=== PATIENT | male | born 1965 | race Caucasian/White ===

== ENCOUNTER → 2016-07-22 | Outpatient (CLI) | payer BC ==
[~2016-07-22] MED LIST: AMLO-114 PO; BUPR-79 PO; BUSP15TA70 PO; CETI10TA84 PO; CHOL1000 PO; GABA-113 PO; LORA-741 PO; LOSA1TAB PO; LOVA20TA4 PO; MAGN400T6 PO; METF-841 PO; METF500T PO; MULTTAB58 PO; OMEP20TA14 PO; PRLSR20 PO; ZOLP10TA PO
[2016-07-26 18:38] LABS: ANTI-SS-A <1.0 NEG AI (<1.0 NEG); ANTI-SS-B <1.0 NEG AI (<1.0 NEG); IGA SERUM 165 mg/dL (81-463); TIS TRANS IGA 1 U/mL (<4)
== END | disposition home or self-care (01) ==
LOC: C.LAB1850 09:16
PROVIDERS: ATTEND Registered Nurse
DX: R63.1 Polydipsia (principal); K52.9 Noninfective gastroenteritis and colitis, unspecified; Z82.69 Family history of other diseases of the musculoskeletal system and connective tissue

== ENCOUNTER → 2016-09-15 | Day surgery (SDC) | payer BC ==
[2016-07-27 08:24] VITALS: Ht 180.3 cm; Wt 168.2 kg
[~2016-09-15] VITALS: Ht 180.3 cm; Wt 168.2 kg
[~2016-09-15] MED LIST changes: -GABA-113 PO; +LIDOCAINE HCL 2% 2 ML VIAL (20MG/ML) ONE; -LORA-741 PO; -METF500T PO; +MIDAZOLAM HCL 1 MG/ML 2ML VIAL ONE; -OMEP20TA14 PO; +ONDANSETRON INJ 2 MG/ML 2 ML VIAL ONE; +PROPOFOL IV EMULSION 10 MG/ML 20 ML VIAL IV ONE; +SODIUM CHLORIDE 0.9% 500ML 500 ML IV ONE
[2016-09-15 11:05] VITALS: TEMP 36.9
--- NOTE | 2016-09-15 11:36 | Endo History and Physical ---
History & Physical Date of Service: Sep 15, 2016. Chief Complaint: diarrhea and abdominal tenderness Referring Physician: Edil Wharton PA-C History of Present Illness 51 yo CM who presents for colonoscopy secondary to diarrhea and abdominal tenderness. Past Surgical History Hx Cardiac Surgery: No Hx Internal Defibrillator: No Hx Pacemaker: No Hx Abdominal Surgery: No Hx of Implantable Prosthesis: No Hx Post-Op Nausea and Vomiting: No Hx Cancer Surgery: No Hx Thoracic Surgery: No Hx Orthopedic: Yes (L/R HAND SURGERY X4) Hx Urinary Tract Surgery: No Family History None Social History Smoking Status: Former Smoker Hx Substance Use: No Hx Alcohol Use: Yes (RARELY) Allergies Coded Allergies: Meloxicam (Verified Allergy, Severe, total body edema, 09/15/16) Current Medications Reported Home Medications Medications Dose Route/Sig Max Daily Dose Days Date Category Zyrtec (Cetirizine HCl) 10 Mg Tab 10 Mg PO DAILY PRN 07/27/16 Reported Multivitamin (Multiple Vitamin) 1 Tab Tab 1 Tab PO QAM 07/27/16 Reported Buspar (Buspirone Hcl) 15 Mg Tab 5 Mg PO PRN PRN 07/27/16 Reported Cozaar (Losartan Potassium) 25 Mg Tab 25 Mg PO QAM 07/27/16 Reported Prilosec (Omeprazole) 20 Mg Capcr 20 Mg PO QAM 07/27/16 Reported Vitamin D3 (Cholecalciferol) 1,000 Unit Tab 1 Tab PO QAM 07/27/16 Reported Metformin HCl ER (Metformin HCl) 1,000 Mg Tab 1 Tab PO BID 07/27/16 Reported Mevacor (Lovastatin) 20 Mg Tab 20 Mg PO QPM 10/10/13 Reported Norvasc (Amlodipine Besylate) 10 Mg Tab 10 Mg PO QAM 10/10/13 Reported Wellbutrin Sr (Bupropion HCl) 150 Mg Ertab 150 Mg PO BID 10/10/13 Reported Mag-Ox (Magnesium Oxide) 400 Mg Tab 400 Mg PO BID 10/10/13 Reported Ambien (Zolpidem Tartrate) 10 Mg Tab 10 Mg PO HS PRN 11/25/11 Reported Vital Signs Weight (Kilograms): 168.18 Height (Feet): 5 Height (Inches): 11 Date Time Temp Pulse Resp B/P Pulse Ox O2 Delivery O2 Flow Rate FiO2 09/15/16 11:05 36.9 78 20 155/97 95 Room Air Physical Exam General Appearance: WD/WN, no apparent distress Respiratory/Chest: Auscultation: breath sounds normal Cardiovascular: Heart Auscultation: RRR Abdomen: Bowel Sounds: normal Inspection & Palpation: soft, non-distended, no tenderness, guarding & rebound Assessment and Plan Assessment: 51 yo CM who presents for colonoscopy secondary to diarrhea and abdominal tenderness. Plan: Proceed with colonoscopy.
--- NOTE | 2016-09-15 12:29 | GI REPORT ---
Procedure Date: 09/15/2016 11:41 AM Procedure: Colonoscopy Indications: Generalized abdominal pain, Chronic diarrhea Medicines: Monitored Anesthesia Care Complications: No immediate complications. Estimated Blood Loss: Estimated blood loss: none. Procedure: Pre-Anesthesia Assessment: - Prior to the procedure, a History and Physical was performed, and patient medications and allergies were reviewed. The patient's tolerance of previous anesthesia was also reviewed. The risks and benefits of the procedure and the sedation options and risks were discussed with the patient. All questions were answered, and informed consent was obtained. Prior Anticoagulants: The patient has taken no previous anticoagulant or antiplatelet agents. ASA Grade Assessment: II - A patient with mild systemic disease. After reviewing the risks and benefits, the patient was deemed in satisfactory condition to undergo the procedure. After I obtained informed consent, the scope was passed under direct vision. Throughout the procedure, the patient's blood pressure, pulse, and oxygen saturations were monitored continuously. The scope was introduced through the anus and advanced to the terminal ileum. The colonoscopy was performed without difficulty. The patient tolerated the procedure well. The quality of the bowel preparation was good. The terminal ileum, ileocecal valve, appendiceal orifice, and rectum were photographed. Findings: Three sessile polyps were found in the descending colon and in the ascending colon. The polyps were 5 to 6 mm in size. These polyps were removed with a hot snare. Resection and retrieval were complete. Several random biopsies were obtained with cold forceps for histology in the entire colon. Fluid aspiration for cytology was performed in the entire colon. Impression: - Three 5 to 6 mm polyps in the descending colon and in the ascending colon, removed with a hot snare. Resected and retrieved. - Several random biopsies were obtained in the entire colon. - Fluid aspiration was performed. Recommendation: - Resume previous diet. - Continue present medications. - Repeat colonoscopy for surveillance based on pathology results. - Return to primary care physician as previously scheduled. Vitor Mae DO 09/15/2016 12:29:13 PM This report has been signed electronically. Note Initiated On: 09/15/2016 11:41 AM I attest to the content of the Intraoperative Record and orders documented therein, exceptions below
--- NOTE | 2016-09-15 12:30 | Discharge Instructions ---
Endoscopy Patient Instructions Date / Procedure(s) Performed Sep 15, 2016. Colonoscopy Allergy Information Coded Allergies: Meloxicam (Verified Allergy, Severe, total body edema, 09/15/16) Discharge Date / Findings Sep 15, 2016. Colon polyps Random colon biopsies Stool studies collected Medication Instructions Stopped Medication(s): stopped Metformin and supplements on Wednesday OK to resume all medications today as prescribed Reported Home Medications Medications Dose Route/Sig Max Daily Dose Days Date Category Zyrtec (Cetirizine HCl) 10 Mg Tab 10 Mg PO DAILY PRN 07/27/16 Reported Multivitamin (Multiple Vitamin) 1 Tab Tab 1 Tab PO QAM 07/27/16 Reported Buspar (Buspirone Hcl) 15 Mg Tab 5 Mg PO PRN PRN 07/27/16 Reported Cozaar (Losartan Potassium) 25 Mg Tab 25 Mg PO QAM 07/27/16 Reported Prilosec (Omeprazole) 20 Mg Capcr 20 Mg PO QAM 07/27/16 Reported Vitamin D3 (Cholecalciferol) 1,000 Unit Tab 1 Tab PO QAM 07/27/16 Reported Metformin HCl ER (Metformin HCl) 1,000 Mg Tab 1 Tab PO BID 07/27/16 Reported Mevacor (Lovastatin) 20 Mg Tab 20 Mg PO QPM 10/10/13 Reported Norvasc (Amlodipine Besylate) 10 Mg Tab 10 Mg PO QAM 10/10/13 Reported Wellbutrin Sr (Bupropion HCl) 150 Mg Ertab 150 Mg PO BID 10/10/13 Reported Mag-Ox (Magnesium Oxide) 400 Mg Tab 400 Mg PO BID 10/10/13 Reported Ambien (Zolpidem Tartrate) 10 Mg Tab 10 Mg PO HS PRN 11/25/11 Reported Provider Instructions Activity Restrictions - No exercising or heavy lifting for 24 hours. - Do not drink alcohol the day of the procedure. - Do not drive a car or operate machinery until the day after the procedure. - Do not make any important decisions or sign important papers in 24 hours after the procedure. Following Day: - Return to full activity which may include returning to work/school. Diet Start your diet with liquids and light foods (jello, soup, juice, toast). Then eat your usual diet if not nauseated. Treatment For Common After Affects For mild abdominal pain, bloating, or excessive gas: - Rest - Eat lightly - Lie on right side Follow-Up Information Follow-up with Edil Wharton PA-C as scheduled Anesthesia Information What You Should Know You have had a procedure that required some medicine to reduce anxiety and discomfort. This treatment is called moderate sedation. After receiving the treatment, you may be sleepy, but you will be able to breathe on your own. The effects of the treatment may last for several hours. Follow these instructions along with Activity/Diet recommendations noted above: * Do NOT do anything where dizziness or clumsiness would be dangerous. * Rest quietly at home today, then you can be up and about tomorrow. * Have a responsible person stay with you the rest of today. * You may have had an I.V. today. If so, you may take the dressing off later today. Recommendations Call your doctor if: * Trouble breathing * Continuous vomiting for more than 24 hours * Temperature above 101 degrees * Severe abdominal pain or bloating * Pain not relieved by pain medicine ordered * There is increased drainage or redness from any incision * A large amount of rectal bleeding greater than 2-3 tablespoons. (If you had a polyp/s removed or have hemorrhoids, a small amount of blood - from the rectum is to be expected.) * You have any unanswered questions or concerns. IN THE EVENT OF A SERIOUS EMERGENCY, GO TO THE NEAREST EMERGENCY ROOM Your discharge instructions were prepared by provider Vitor Mae. Patient Instructions Signature Page Paul Ludwig Patient (or Guardian) Signature/Date: I have read and understand the instructions given to me by my caregivers. Caregiver/RN/Doctor Signature/Date: The above-named patient and/or guardian has received patient instructions on this date. + Original Patient Signature Page (only) stays with chart. Please make copy for patient.
--- NOTE | 2016-09-15 12:54 | Anesthesiology Progress Note ---
Anesthesia Post Op Note Date & Time Sep 15, 2016 at 12:53 Vital Signs Pain Intensity: 0 Vital Signs Past 12 Hours Date Time Temp Pulse Resp B/P Pulse Ox O2 Delivery O2 Flow Rate FiO2 09/15/16 12:45 71 20 122/80 94 Room Air 09/15/16 12:29 85 20 99/72 96 Room Air 09/15/16 11:05 36.9 78 20 155/97 95 Room Air Notes Mental Status: alert / awake / arousable, participated in evaluation Pt Amnestic to Procedure: Yes Nausea / Vomiting: adequately controlled Pain: adequately controlled Airway Patency, RR, SpO2: stable & adequate BP & HR: stable & adequate Hydration State: stable & adequate Anesthetic Complications: no major complications apparent
[2016-09-15 12:58] VITALS: BP 135/97; PULSE 69; O2SAT 98
== END | disposition home or self-care (01) ==
LOC: C.GI 10:35
PROVIDERS: ATTEND Internal Medicine
DX: R19.7 Diarrhea, unspecified (principal); D12.3 Benign neoplasm of transverse colon; D12.4 Benign neoplasm of descending colon; Z87.891 Personal history of nicotine dependence; Z88.8 Allergy status to other drugs, medicaments and biological substances

== ENCOUNTER → 2017-07-30 | Outpatient (CLI) | payer BC ==
[~2017-07-30] MED LIST changes: -LIDOCAINE HCL 2% 2 ML VIAL (20MG/ML) ONE; -MIDAZOLAM HCL 1 MG/ML 2ML VIAL ONE; -ONDANSETRON INJ 2 MG/ML 2 ML VIAL ONE; -PROPOFOL IV EMULSION 10 MG/ML 20 ML VIAL IV ONE; -SODIUM CHLORIDE 0.9% 500ML 500 ML IV ONE
[2017-07-30 16:58] LABS: BASO ABS # 0.06 K/uL (0-0.2); EOS % 4.2 %; EOS ABS # 0.26 K/uL (0-0.5); HEMATOCRIT 46.7 % (42-52); HEMOGLOBIN 16.2 g/dL (14.0-18.0); IG# 0.02 K/uL (0.00-0.02); LYMPH ABS # 2.21 K/uL (1.2-3.4); MEAN CELL VOLUME 84.9 fL (80-100); MEAN CORPUSCULAR HEMOGLOBIN 29.5 pg (25-34); MEAN CORPUSCULAR HGB CONC 34.7 g/dl (32-36); MEAN PLATELET VOLUME 11.4 fL (7.4-10.4); MONO % 8.6 %; MONO ABS # 0.53 K/uL (0.11-0.59); NEUT % 49.9 %; NEUT ABS # 3.06 K/uL (1.4-6.5); PLATELET COUNT 225 K/uL (130-400); RED CELL DISTRIBUTION WIDTH CV 13.9 % (11.5-14.5); RED CELL DISTRIBUTION WIDTH SD 42.8 fL (36.4-46.3); WHITE BLOOD COUNT 6.14 K/uL (4.8-10.8)
[2017-07-30 17:12] LABS: ALBUMIN 3.7 gm/dl (3.4-5.0); ALT/SGPT 43 U/L (12-78); AST/SGOT 22 U/L (15-37); BLOOD UREA NITROGEN 8 mg/dl (7-18); CALCIUM 9.1 mg/dl (8.5-10.1); CARBON DIOXIDE 27 mmol/L (21-32); CHOLESTEROL 197 mg/dl (0-200); CREATININE 1.05 mg/dl (0.60-1.40); GLUCOSE 301 mg/dl (70-99); POTASSIUM 3.7 mmol/L (3.5-5.1); SODIUM 135 mmol/L (136-145)
[2017-07-30 17:14] LABS: LDL CHOLESTEROL (DIRECT) 131 mg/dl; TOTAL PROTEIN 7.2 gm/dl (6.4-8.2)
[2017-07-30 17:21] LABS: ALKALINE PHOSPHATASE 64 U/L (45-117)
[2017-07-31 07:51] LABS: HEMOGLOBIN A1C 12.3 % (4.5-5.6)
== END | disposition home or self-care (01) ==
LOC: C.LABPBG 12:17
PROVIDERS: ATTEND Physician Assistant Medical
DX: E11.65 Type 2 diabetes mellitus with hyperglycemia (principal); M79.1 Myalgia

== ENCOUNTER → 2017-08-18 | Outpatient (CLI) | payer BC | END | disposition home or self-care (01) | LOC: C.LABPBG 09:32 | PROVIDERS: ATTEND Physician Assistant Medical | DX: E83.42 Hypomagnesemia (principal) ==